=== PATIENT | female | born 1960 | race Caucasian/White ===

== ENCOUNTER → 2020-12-21 | Outpatient (CLI) | payer BC | LOC: KOH-I 12:30 | DX: R10.9 Unspecified abdominal pain (principal); R31.9 Hematuria, unspecified; K52.89 Other specified noninfective gastroenteritis and colitis | CPT/HCPCS: 74176 ==

== ENCOUNTER → 2021-04-04 | Outpatient (CLI) | payer BC | LOC: KOH-I 12:11 | DX: M25.512 Pain in left shoulder (principal); M19.012 Primary osteoarthritis, left shoulder | CPT/HCPCS: 73030 ==